=== PATIENT | female | born 1990 | race Caucasian/White ===

== ENCOUNTER 2020-09-13 17:07 | Emergency (ER) | payer MEDICAID ==
[~2020-09-13] VITALS: Ht 157.5 cm; Wt 62.6 kg
[2020-09-13 17:37] VITALS: BP 125/84
[2020-09-13] MEDS ORDERED: PROPARACAINE OPHTH 0.5%, 15ML EACHEYE ONE (18:00)
[2020-09-13] MEDS ORDERED: FLUORESCEIN OPHTHALMIC 1 MG STRIP EACHEYE ONE (18:00)
[2020-09-13] MEDS ORDERED: PROPARACAINE OPHTH 0.5%, 15ML ONE (18:01)
[2020-09-13] MEDS ORDERED: FLUORESCEIN OPHTHALMIC 1 MG STRIP ONE (18:02)
== END 2020-09-13 19:20 | disposition home or self-care (01) ==
LOC: ED 18:58
DX: B02.33 Zoster keratitis (principal); H57.11 Ocular pain, right eye
CPT/HCPCS: 99283; J7512

== ENCOUNTER 2020-09-15 08:45 | Emergency (ER) | payer MEDICAID ==
[~2020-09-15] VITALS: Ht 157.5 cm; Wt 62.9 kg
[2020-09-15 08:53] VITALS: BP 119/75
[2020-09-15] MEDS ORDERED: PROPARACAINE OPHTH 0.5%, 15ML ONE (09:42)
[2020-09-15] MEDS ORDERED: FLUORESCEIN OPHTHALMIC 1 MG STRIP ONE (09:42)
--- NOTE | 2020-09-15 10:13 | NUR ---
investigations director charles called @ [id number]
== END 2020-09-15 10:52 | disposition home or self-care (01) ==
LOC: ED 09:08
DX: B02.9 Zoster without complications (principal)
CPT/HCPCS: 99283